=== PATIENT | male | born 1985 | race Caucasian/White ===

== ENCOUNTER 2017-05-17 18:11 | Emergency (ER) | payer SELFPAY ==
[2017-05-17] MEDS ORDERED: DUONEB *Not for PRN Use IH ONE (20:03)
--- NOTE | 2017-05-17 20:10 | Emergency Department Report ---
ED General Adult HPI - General Chief complaint: Upper Respiratory Infection Stated complaint: CHEST CONGESTION Time Seen by Provider: 05/17/17 19:57 Source: patient Mode of arrival: Ambulatory Limitations: No Limitations - History of Present Illness Initial comments: PT c/o chest congestion x 1 week. PT states he thinks he got sick after sleeping in front of a fan. 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 PT states he got very little sleep for a few days. PT states he slept like 7-8 hours in front of the fan. PT states he woke up and was hot. PT states he has asthma and is out of his medication. PT states when he takes Mucinex he is able to bring up some thick sputum. PT states it is yellow, gross, or green. PT denies hemoptysis. PT is a smoker. MD Complaint: cough -: Gradual, week(s) (one ) Location: chest Severity scale (0 -10): 4 Quality: other (tight ) Consistency: constant Improves with: medication (Mucinex helps some ) Associated Symptoms: cough, diaphoresis, fever/chills, loss of appetite, shortness of breath. denies: headaches, nausea/vomiting Treatments Prior to Arrival: none - Related Data Previous Rx's Medication Instructions Recorded Last Taken Type Albuterol Sulfate [Ventolin HFA] 2 puff IH Q4H PRN #1 hfa.aer.ad 05/17/17 Unknown Rx Azithromycin [Zithromax] 250 mg PO DAILY #6 tablet 05/17/17 Unknown Rx Benzonatate [Tessalon Perles] 100 mg PO Q8HR PRN #12 capsule 05/17/17 Unknown Rx methylPREDNISolone [Medrol] 4 mg PO DAILY #1 tab.ds.pk 05/17/17 Unknown Rx Allergies Allergy/AdvReac Type Severity Reaction Status Date / Time bee venom (honey bee) Allergy Swelling Verified 05/17/17 18:19 cat dander Allergy Swelling Verified 05/17/17 18:19 dog dander AdvReac Swelling Verified 05/17/17 18:19 beans Allergy Itching Uncoded 05/17/17 18:19 ED Review of Systems ROS: Stated complaint: CHEST CONGESTION Other details as noted in HPI Comment: All other systems reviewed and negative Constitutional: diaphoresis, fever (subjective ) Respiratory: cough, wheezing, other (chest congestion ) Cardiovascular: chest pain (chest tight ) Gastrointestinal: other (decreased appetite ). denies: abdominal pain ED Past Medical Hx - Past Medical History Previous Medical History?: Yes Hx Asthma: Yes - Surgical History Past Surgical History?: No - Social History Smoking Status: Current Every Day Smoker Substance Use Type: Alcohol, Marijuana, Other - Medications Home Medications: Home Medications Medication Instructions Recorded Confirmed Last Taken Type Albuterol Sulfate [Ventolin HFA] 2 puff IH Q4H PRN #1 hfa.aer.ad 05/17/17 Unknown Rx Azithromycin [Zithromax] 250 mg PO DAILY #6 tablet 05/17/17 Unknown Rx Benzonatate [Tessalon Perles] 100 mg PO Q8HR PRN #12 capsule 05/17/17 Unknown Rx methylPREDNISolone [Medrol] 4 mg PO DAILY #1 tab.ds.pk 05/17/17 Unknown Rx ED Physical Exam - General Limitations: No Limitations General appearance: alert, in no apparent distress, other (thin) - Head Head exam: Present: atraumatic, normocephalic, normal inspection - Eye Eye exam: Present: normal appearance, PERRL, EOMI. Absent: conjunctival injection - ENT ENT exam: Present: mucous membranes moist, normal external ear exam - Expanded ENT Exam Expanded Mouth exam: Absent: drooling, trismus Throat exam: Positive: tonsillar erythema. Negative: tonsillar exudate, R peritonsillar mass, L peritonsillar mass - Neck Neck exam: Present: normal inspection, full ROM. Absent: tenderness, lymphadenopathy - Respiratory Respiratory exam: Present: wheezes, rhonchi. Absent: normal lung sounds bilaterally, respiratory distress, chest wall tenderness - Expanded Respiratory Exam Expanded Location: Wheezes: Right, Upper, Lower, Rhonchi: Left, Right, Upper, Lower - Cardiovascular Cardiovascular Exam: Present: regular rate, normal rhythm, normal heart sounds - GI/Abdominal GI/Abdominal exam: Present: soft. Absent: tenderness - Extremities Exam Extremities exam: Present: normal inspection, full ROM - Back Exam Back exam: Present: normal inspection, full ROM. Absent: tenderness, CVA tenderness (R), CVA tenderness (L), muscle spasm, paraspinal tenderness, vertebral tenderness - Neurological Exam Neurological exam: Present: alert, oriented X3, normal gait - Psychiatric Psychiatric exam: Present: normal affect, normal mood - Skin Skin exam: Present: warm, dry, intact ED Course Vital Signs 05/17/17 18:19 Temperature 98.3 F Pulse Rate 69 Respiratory 18 Rate Blood Pressure 130/84 O2 Sat by Pulse 97 Oximetry - Reevaluation(s) Reevaluation #1: 05/17/17 22:03 PT's lung sounds improved sp neb. PT still with rhonchi to the RLE. Given pt is a smoker, will treat as complicated bronchitis. PT given strict return precautions. PT wanting dc home. - Pulse Oximetry Interpretation Digit-Finger Initial Pulse Oximetry Readin Actions Taken: none ED Medical Decision Making - Lab Data Result diagrams: 05/17/17 20:24 05/17/17 20:24 Laboratory Last Values WBC 6.5 K/mm3 (4.5-11.0) 05/17/17 20:24 RBC 6.24 M/mm3 (3.65-5.03) H 05/17/17 20:24 Hgb 17.2 gm/dl (11.8-15.2) H 05/17/17 20:24 Hct 52.7 % (35.5-45.6) H 05/17/17 20:24 MCV 84 fl (84-94) 05/17/17 20:24 MCH 28 pg (28-32) 05/17/17 20:24 MCHC 33 % (32-34) 05/17/17 20:24 RDW 12.9 % (13.2-15.2) L 05/17/17 20:24 Plt Count 307 K/mm3 (140-440) 05/17/17 20:24 Add Manual Diff Complete 05/17/17 20:24 Total Counted 100 05/17/17 20:24 Seg Neuts % (Manual) 40.0 % (40.0-70.0) 05/17/17 20:24 Band Neutrophils % 0 % 05/17/17 20:24 Lymphocytes % (Manual) 43.0 % (13.4-35.0) H 05/17/17 20:24 Reactive Lymphs % (Man) 0 % 05/17/17 20:24 Monocytes % (Manual) 7.0 % (0.0-7.3) 05/17/17 20:24 Eosinophils % (Manual) 10.0 % (0.0-4.3) H 05/17/17 20:24 Basophils % (Manual) 0 % (0.0-1.8) 05/17/17 20:24 Metamyelocytes % 0 % 05/17/17 20:24 Myelocytes % 0 % 05/17/17 20:24 Promyelocytes % 0 % 05/17/17 20:24 Blast Cells % 0 % 05/17/17 20:24 Nucleated RBC % Not Reportable 05/17/17 20:24 Seg Neutrophils # Man 2.6 K/mm3 (1.8-7.7) 05/17/17 20:24 Band Neutrophils # 0.0 K/mm3 05/17/17 20:24 Lymphocytes # (Manual) 2.8 K/mm3 (1.2-5.4) 05/17/17 20:24 Abs React Lymphs (Man) 0.0 K/mm3 05/17/17 20:24 Monocytes # (Manual) 0.5 K/mm3 (0.0-0.8) 05/17/17 20:24 Eosinophils # (Manual) 0.7 K/mm3 (0.0-0.4) H 05/17/17 20:24 Basophils # (Manual) 0.0 K/mm3 (0.0-0.1) 05/17/17 20:24 Metamyelocytes # 0.0 K/mm3 05/17/17 20:24 Myelocytes # 0.0 K/mm3 05/17/17 20:24 Promyelocytes # 0.0 K/mm3 05/17/17 20:24 Blast Cells # 0.0 K/mm3 05/17/17 20:24 WBC Morphology Not Reportable 05/17/17 20:24 Hypersegmented Neuts Not Reportable 05/17/17 20:24 Hyposegmented Neuts Not Reportable 05/17/17 20:24 Hypogranular Neuts Not Reportable 05/17/17 20:24 Smudge Cells Not Reportable 05/17/17 20:24 Toxic Granulation Not Reportable 05/17/17 20:24 Toxic Vacuolation Not Reportable 05/17/17 20:24 Dohle Bodies Not Reportable 05/17/17 20:24 Pelger-Huet Anomaly Not Reportable 05/17/17 20:24 Helene Rods Not Reportable 05/17/17 20:24 Platelet Estimate Consistent w auto 05/17/17 20:24 Clumped Platelets Not Reportable 05/17/17 20:24 Plt Clumps, EDTA Not Reportable 05/17/17 20:24 Large Platelets Not Reportable 05/17/17 20:24 Giant Platelets Not Reportable 05/17/17 20:24 Platelet Satelliting Not Reportable 05/17/17 20:24 Plt Morphology Comment Not Reportable 05/17/17 20:24 RBC Morphology Normal 05/17/17 20:24 Dimorphic RBCs Not Reportable 05/17/17 20:24 Polychromasia Not Reportable 05/17/17 20:24 Hypochromasia Not Reportable 05/17/17 20:24 Poikilocytosis Not Reportable 05/17/17 20:24 Anisocytosis Not Reportable 05/17/17 20:24 Microcytosis Not Reportable 05/17/17 20:24 Macrocytosis Not Reportable 05/17/17 20:24 Spherocytes Not Reportable 05/17/17 20:24 Pappenheimer Bodies Not Reportable 05/17/17 20:24 Sickle Cells Not Reportable 05/17/17 20:24 Target Cells Not Reportable 05/17/17 20:24 Tear Drop Cells Not Reportable 05/17/17 20:24 Ovalocytes Not Reportable 05/17/17 20:24 Helmet Cells Not Reportable 05/17/17 20:24 [place] Bodies Not Reportable 05/17/17 20:24 [place] Rings Not Reportable 05/17/17 20:24 Allie Cells Not Reportable 05/17/17 20:24 Bite Cells Not Reportable 05/17/17 20:24 Crenated Cell Not Reportable 05/17/17 20:24 Elliptocytes Not Reportable 05/17/17 20:24 Acanthocytes (Spur) Not Reportable 05/17/17 20:24 Rouleaux Not Reportable 05/17/17 20:24 Hemoglobin C Crystals Not Reportable 05/17/17 20:24 Schistocytes Not Reportable 05/17/17 20:24 Malaria parasites Not Reportable 05/17/17 20:24 Ramy Bodies Not Reportable 05/17/17 20:24 Hem Pathologist Commnt No 05/17/17 20:24 Sodium 140 mmol/L (137-145) 05/17/17 20:24 Potassium 4.4 mmol/L (3.6-5.0) 05/17/17 20:24 Chloride 95.5 mmol/L (98-107) L 05/17/17 20:24 Carbon Dioxide 27 mmol/L (22-30) 05/17/17 20:24 Anion Gap 22 mmol/L 05/17/17 20:24 BUN 10 mg/dL (9-20) 05/17/17 20:24 Creatinine 1.0 mg/dL (0.8-1.5) 05/17/17 20:24 Estimated GFR > 60 ml/min 05/17/17 20:24 BUN/Creatinine Ratio 10.00 % 05/17/17 20:24 Glucose 68 mg/dL (75-100) L 05/17/17 20:24 Calcium 9.7 mg/dL (8.4-10.2) 05/17/17 20:24 Total Bilirubin 1.00 mg/dL (0.1-1.2) 05/17/17 20:24 AST 27 units/L (5-40) 05/17/17 20:24 ALT 16 units/L (7-56) 05/17/17 20:24 Alkaline Phosphatase 73 units/L (35-129) 05/17/17 20:24 Total Protein 9.4 g/dL (6.3-8.2) H 05/17/17 20:24 Albumin 5.0 g/dL (3.9-5) 05/17/17 20:24 Albumin/Globulin Ratio 1.1 % 05/17/17 20:24 - Radiology Data Radiology results: report reviewed XR chest - nap, S shaped scoliosis - Differential Diagnosis pna, bronchitis, uri Critical Care Time: No Critical care attestation.: If time is entered above; I have spent that time in minutes in the direct care of this critically ill patient, excluding procedure time. ED Disposition Clinical Impression: Acute bronchitis, complicated Disposition: DC-01 TO HOME OR SELFCARE Is pt being admited?: No Does the pt Need Aspirin: No Condition: Stable Instructions: Asthma (ED), How to Stop Smoking (ED), Acute Bronchitis (ED) Additional Instructions: refrain from smoking Rest Increase fluids Follow up with PCP in 3-5 days Continue Mucinex Return to the ED if you become Short of breath, have fevers, have worsening coughing Your Chest XR showed that your spine has scoliosis. Follow up with Ortho in a week Prescriptions: Albuterol Sulfate [Ventolin HFA] 2 puff IH Q4H PRN #1 hfa.aer.ad PRN Reason: Shortness Of Breath Azithromycin [Zithromax] 250 mg PO DAILY #6 tablet Benzonatate [Tessalon Perles] 100 mg PO Q8HR PRN #12 capsule PRN Reason: Cough methylPREDNISolone [Medrol] 4 mg PO DAILY #1 tab.ds.pk Referrals: PRIMARY CARE, [Primary Care Provider] - 3-5 Days HOSSEIN ALBERT MD [Staff Physician] - 3-5 Days [facility] [Outside] - 3-5 Days YOANDY GILL MD [Staff Physician] - 3-5 Days Forms: Accompanied Note, Work/School Release Form(ED) Time of Disposition: 22:05
[2017-05-17 20:32] LABS: Hematocrit 52.7 % (35.5-45.6); Hemoglobin 17.2 gm/dl (11.8-15.2); Mean Corpuscular HGB Conc 33 % (32-34); Mean Corpuscular Hemoglobin 28 pg (28-32); Mean Corpuscular Volume 84 fl (84-94); Platelet Count 307 K/mm3 (140-440); Red Blood Count 6.24 M/mm3 (3.65-5.03); Red Cell Distribution Width 12.9 % (13.2-15.2); White Blood Count 6.5 K/mm3 (4.5-11.0)
[2017-05-17 20:55] LABS: Alanine Aminotransferase 16 units/L (7-56); Albumin/Globulin Ratio 1.1 %; Alkaline Phosphatase 73 units/L (35-129); Anion Gap 22 mmol/L; Blood Urea Nitrogen 10 mg/dL (9-20); Calcium 9.7 mg/dL (8.4-10.2); Carbon Dioxide 27 mmol/L (22-30); Chloride 95.5 mmol/L (98-107); Glucose 68 mg/dL (75-100); Potassium 4.4 mmol/L (3.6-5.0); Sodium 140 mmol/L (137-145); Total Protein 9.4 g/dL (6.3-8.2)
--- NOTE | 2017-05-17 21:35 | XRay Report ---
FINAL REPORT EXAM: XR CHEST ROUTINE 2V HISTORY: fever, cough, congestion x 1 week TECHNIQUE: Frontal and lateral chest x-ray. PRIORS: None. FINDINGS: Cardiac and mediastinal silhouette within normal limits. Lungs are normally expanded. No focal consolidation, pleural effusions or apparent pneumothorax. Mild S-shaped scoliotic change in thoracolumbar spine. IMPRESSION: 1. No acute consolidation.
[2017-05-17 21:49] LABS: Basophils % (Manual) 0 % (0.0-1.8); Blastocytes % (Manual) 0 %
[2017-05-17 21:50] LABS: Diff Status Complete; Platelet Estimate Consistent w Auto; RBC Morphology Normal
[2017-05-18 03:15] VITALS: BP 142/93
== END 2017-05-17 22:54 | disposition home or self-care (01) ==
LOC: ED 18:11
DX: J20.9 Acute bronchitis, unspecified (principal); J45.909 Unspecified asthma, uncomplicated; F12.10 Cannabis abuse, uncomplicated; F17.200 Nicotine dependence, unspecified, uncomplicated; Z91.030 Bee allergy status; Z91.018 Allergy to other foods; Z91.09 Other allergy status, other than to drugs and biological substances
CPT/HCPCS: 36415; 71020; 80053; 85007; 85025; 96372; 99284; J2930